=== PATIENT | female | born 1985 | race Caucasian/White ===

== ENCOUNTER → 2019-05-15 | Outpatient (CLI) | payer OTHER ==
--- NOTE | 2019-05-15 17:32 | Diagnostic Imaging Report ---
Exam: Pelvic ultrasound. History: Menorrhagia Comparison: None Findings: Transabdominal and endovaginal sonographic evaluation of the pelvis. The uterus is anteverted in position, measuring 7.6 x 4.5 x 5.5cm. The uterine myometrium appears heterogeneous in echotexture. Endometrial stripe thickness is 3 millimeters. The right ovary measures 3.0 x 2.0 x 3.0 cm and appears unremarkable. The left ovary measures 1.9 x 1.4 x 1.6 cm and appears unremarkable. No free fluid in the pelvis. Impression: Heterogeneous uterine myometrium. Otherwise, unremarkable pelvic ultrasound. Signed by: Chris Finn MD on 05/15/2019 5:30 PM
== END ==
LOC: US 15:36
PROVIDERS: ATTEND Internal Medicine
DX: N92.0 Excessive and frequent menstruation with regular cycle (principal)
CPT/HCPCS: 76830; 76856

== ENCOUNTER 2024-07-25 12:11 | Emergency (ER) | payer OTHER ==
[~2024-07-25] VITALS: Ht 167.6 cm; Wt 52.6 kg
[2024-07-25 12:27] VITALS: TEMP 98
[2024-07-25] MEDS: SODIUM CHLORIDE 0.9% 1000ML 1,000 ML IV ONE (12:42)
[2024-07-25 12:44] VITALS: PULSE 84; RESP 18; O2SAT 99
[2024-07-25 13:07] LABS: ALBUMIN 4.1 g/dL (3.5-5.0); ALBUMIN/GLOBULIN RATIO 1.6 (0.8-2.0); ANION GAP 14.9 mmol/L (8-16); BILIRUBIN,TOTAL 0.8 mg/dL (0.2-1.2); CREATININE, SERUM 0.67 mg/dL (0.57-1.11); POTASSIUM 3.9 mmol/L (3.5-5.1); TOTAL PROTEIN 6.7 g/dL (6.5-8.1)
[2024-07-28 06:23] LABS: ABG PH 7.35 (7.35-7.45)
== END 2024-07-25 14:31 | disposition home or self-care (01) ==
LOC: ER 12:15
DX: T45.2X1A Poisoning by vitamins, accidental (unintentional), initial encounter (principal); R88.8 Abnormal findings in other body fluids and substances; J45.909 Unspecified asthma, uncomplicated; F32.A Depression, unspecified; F90.9 Attention-deficit hyperactivity disorder, unspecified type
CPT/HCPCS: 36415; 80053; 82805; 99283; J7030